=== PATIENT | male | born 1945 | race Caucasian/White ===

== ENCOUNTER 2018-01-17 16:22 | Emergency (ER) | payer OTHER ==
--- NOTE | 2018-01-17 16:32 | PDOC ---
Rapid Medical Evaluation Time Seen by Provider: 01/17/18 16:28 Medical Evaluation: 01/17/18 16:29 Pt c/o: fell outside on wet pavement , landing on hands, no head injury, no complaints presently Pt on brief exam: no physical injury, daughter translating Ao x3 Pt ordered for: none pt to proceed to the ED Discharge Disposition - Diagnosis Fall - Referrals - Patient Instructions - Post Discharge Activity
[2018-01-17 16:33] VITALS: BP 170/99; PULSE 93; TEMP 98.2; BMI 30.2
== END 2018-01-17 17:22 | disposition left against medical advice (07) ==
LOC: JERFT 16:22
DX: S69.81XA Other specified injuries of right wrist, hand and finger(s), initial encounter (principal); S69.82XA Other specified injuries of left wrist, hand and finger(s), initial encounter; W01.0XXA Fall on same level from slipping, tripping and stumbling without subsequent striking against object, initial encounter; Y93.89 Activity, other specified; Y92.480 Sidewalk as the place of occurrence of the external cause; Y99.8 Other external cause status
CPT/HCPCS: 99281-25